=== PATIENT | male | born 1965 | race Caucasian/White ===

== ENCOUNTER 2022-01-23 13:22 | Emergency (ER) | payer MEDICAID, OTHER ==
[~2022-01-23] VITALS: Ht 180.3 cm; Wt 100.0 kg
[2022-01-23] MEDS ORDERED: KETOROLAC TROMETHAMINE 30 MG/ML VIAL IM ONE (14:45)
[2022-01-23] MEDS ORDERED: DIAZEPAM 5 MG TABLET PO ONE (14:45)
[2022-01-23 16:03] VITALS: BP 151/95
[2022-01-23] MEDS ORDERED: BACL10TA PO (16:35)
[2022-01-23] MEDS ORDERED: IBUP-2070 PO (16:36)
== END 2022-01-23 16:54 | disposition home or self-care (01) ==
LOC: EMS 13:48
DX: M43.6 Torticollis (principal); I10 Essential (primary) hypertension
CPT/HCPCS: 99283; 96372; J1885